=== PATIENT | female | born 1980 | race Asian ===

== ENCOUNTER 2016-11-04 10:06 | Day surgery (SDC) | payer OTHER ==
[~2016-11-04] VITALS: Ht 167.6 cm; Wt 63.4 kg
[2016-11-04] MEDS ORDERED: LACTATED RINGERS 1,000 ML IV SCH (10:27)
[2016-11-04] MEDS ORDERED: LIDOCAINE 1%, 2ML SQ PRN (10:30)
[2016-11-04 10:31] VITALS: BP 102/77
[2016-11-04] MEDS ORDERED: SILVER NITRATE STICK TP ONE (10:35)
[2016-11-04] MEDS ORDERED: EPINEPHRINE 1 MG/ML, 1ML ONE (10:35)
[2016-11-04] MEDS ORDERED: BUPIVACAINE/PF 0.25% ONE (10:36)
[2016-11-04] MEDS ORDERED: LIDOCAINE 1%, 2ML ONE (10:41)
[2016-11-04] MEDS ORDERED: VILA40TA PO (10:53)
[2016-11-04 10:54] LABS: HCG UR OBC PASS
[2016-11-04] MEDS ORDERED: HYDROmorphone 1 MG/ML, 1ML IV PRN (11:00)
[2016-11-04] MEDS ORDERED: FENTANYL PF 100 MCG/2ML IV PRN (11:00)
[2016-11-04] MEDS ORDERED: OXYcodone 5 MG/5 ML ORAL.SOL UDC PO PRN (11:00)
[2016-11-04] MEDS ORDERED: KETOROLAC 30 MG/1 ML IV PRN (11:00)
[2016-11-04] MEDS ORDERED: ACETAMINOPHEN 325 MG TABLET PO PRN (11:00)
[2016-11-04] MEDS ORDERED: ONDANSETRON 2MG/ML, 2ML IVPush PRN (11:00)
[2016-11-04] MEDS ORDERED: MIDAZOLAM 1 MG/ML, 2ML ONE (11:03)
[2016-11-04] MEDS ORDERED: FENTANYL PF 100 MCG/2ML ONE (11:03)
[2016-11-04] MEDS ORDERED: DEXAMETHASONE 4 MG/ML, 1ML ONE (12:06)
[2016-11-04] MEDS ORDERED: PROPOFOL 10 MG/ML, 20ML ONE (12:06)
[2016-11-04] MEDS ORDERED: PROPOFOL 10 MG/ML, 50ML ONE (12:06)
[2016-11-04] MEDS ORDERED: ONDANSETRON 2MG/ML, 2ML ONE (12:06)
[2016-11-04] MEDS ORDERED: KETOROLAC 30 MG/1 ML ONE (13:08)
== END 2016-11-04 14:45 ==
LOC: OR 10:06 → OUT 14:45
PROVIDERS: ATTEND Student in an Organized Health Care Education/Training Program
DX: T83.89XA Other specified complication of genitourinary prosthetic devices, implants and grafts, initial encounter (principal); Y83.8 Other surgical procedures as the cause of abnormal reaction of the patient, or of later complication, without mention of misadventure at the time of the procedure; Y92.89 Other specified places as the place of occurrence of the external cause; F32.9 Major depressive disorder, single episode, unspecified; Z98.890 Other specified postprocedural states
CPT/HCPCS: 36415; 58300; 58555; 81025; 86850; 86900; J0171; J1100; J1885; J2250; J2405; J2704; J3010; J3490; J7120; J7298